=== PATIENT | female | born 1975 | race Caucasian/White ===

== ENCOUNTER 2022-11-20 18:54 | Emergency (ER) | payer BC ==
--- NOTE | 2022-11-20 19:03 | ERPHSYRPT ---
- History of Present Illness Time Seen by Provider: 11/20/22 19:03 Source: patient, family Exam Limitations: no limitations Physician History: 47-year-old white female patient who presents with left ankle pain after twisting it last evening while walking in crocs shoes. Patient was able to bear weight but has pain and the pain has persisted. Approximately 1400 today she took Tylenol 1000 mg. Patient states that she heard several pops when she injured it initially. Method of Injury: twisted Occurred: yesterday Quality: constant, aching Severity of Pain-Max: moderate Severity of Pain-Current: moderate Lower Extremities Pain: ankle: left Modifying Factors: Improves With: movement Associated Symptoms: other (Patient is able to bear weight but hurts to do so) Allergies/Adverse Reactions: Penicillins Allergy (Verified 11/20/22 19:06) procaine [From Novocain] Allergy (Verified 11/20/22 19:06) Home Medications: No Reportable Medications [No Reported Medications] 11/20/22 [History] Travel Risk - International Travel Have you traveled outside of the country in past 3 weeks: No - Coronavirus Screening Are you exhibiting any of the following symptoms?: No Close contact with a COVID-19 positive Pt in past 14-21 Days: No - Review of Systems Constitutional: No Symptoms Eyes: No Symptoms Ears, Nose, & Throat: No Symptoms Respiratory: No Symptoms Cardiac: No Symptoms Abdominal/Gastrointestinal: No Symptoms Genitourinary Symptoms: No Symptoms Musculoskeletal: Fall, Injury (Left ankle) Skin: No Symptoms Neurological: No Symptoms Psychological: No Symptoms Endocrine: No Symptoms Hematologic/Lymphatic: No Symptoms Immunological/Allergic: No Symptoms All Other Systems: Reviewed and Negative - Past Medical History Pertinent Past Medical History: No - Past Surgical History Past Surgical History: Yes - Nursing Vital Signs Nursing Vital Signs: Initial Vital Signs Temperature 97.2 F 11/20/22 19:08 Pulse Rate 78 11/20/22 19:08 Respiratory Rate 18 11/20/22 19:08 Blood Pressure 120/61 11/20/22 19:08 O2 Sat by Pulse Oximetry 97 11/20/22 19:08 Pain Scale Pain Intensity 8 - Physical Exam General Appearance: no apparent distress, alert, anxiety Eyes, Ears, Nose, Throat Exam: normal ENT inspection, moist mucous membranes Neck Exam: normal inspection, non-tender, supple, full range of motion Cardiovascular/Respiratory Exam: chest non-tender, no respiratory distress Gastrointestinal/Abdominal Exam: non-tender Back Exam: normal inspection, normal range of motion, No CVA tenderness, No vertebral tenderness Hips Exam: bilateral: non-tender, normal inspection, normal range of motion, no evidence of injury Legs Exam: bilateral leg: non-tender, normal inspection, normal range of motion, no evidence of injury Knees Exam: bilateral knee: non-tender, normal inspection, normal range of motion, no evidence of injury Ankle Exam: right ankle: non-tender, normal inspection, normal range of motion, left ankle: no evidence of injury, soft tissue tenderness Foot Exam: bilateral foot: non-tender, normal inspection, normal range of motion, no evidence of injury Neuro/Tendon Exam: normal sensation, normal motor functions, normal tendon functions, responds to pain, no evidence tendon injury Mental Status Exam: alert, oriented x 3, cooperative Skin Exam: normal color, warm, dry SpO2 Interpretation: normal O2 Delivery: Room Air - Course Nursing assessment & vital signs reviewed: Yes Ordered Tests: Active Orders 24 hr Category Date Time Status ANKLE (3 VIEWS) Stat Exams 11/20/22 19:07 Taken - Progress Progress Note: 11/20/22 20:00 No acute fracture or dislocation on the left ankle x-ray. I interpreted this film. 11/20/22 20:03 This patient's medical issues of low complexity. This is based on the patient's complaint, history of present illness, physical findings on physical examination. I ordered x-ray of the left ankle. I interpreted the results of this x-ray. I do not appreciate an acute fracture or dislocation. Patient is diagnosed with a sprain left ankle. We will provide her with 2 Percocet 5/325 pain medications for home. She is to take 1 tablet orally every 6-8 hours as needed for pain control. She is to follow-up with [facility] orthopedic clinic on 11/22/2022 if pain persist. Counseled pt/family regarding: diagnosis, need for follow-up, rad results Medical Desision Making - Discussion of managment Reviewed:: Test results Agreed on:: Treatment plan, need for follow-up - Diagnostic Testing Diagnostic test were ordered, analyzed, and reviewed by me: Yes Radiological Interpretation: Interpreted by me - Risk of complications Minimal Risk: Minimal risk of morbidity - Departure Departure Disposition: Home Clinical Impression: Left ankle sprain Condition: Stable Critical Care Time: No Referrals: KIM CADE [ACTIVE STAFF] - Follow up/PCP as directed Additional Instructions: Ice pack to area 3 times a day for the next 48 hours. Add ibuprofen to the Percocet pain medication that you were provided. After you complete the Percocet pain medication, use Tylenol and ibuprofen for pain control. Use Tylenol 650 mg alternating with ibuprofen 600 mg every 6 hours. Follow-up in [facility] orthopedic clinic on 11/22/2022 at 8 AM for evaluation if your symptoms persist. It is a walk-in clinic and you do not need to have an appointment.
[2022-11-20 19:15] VITALS: O2SAT 97
[2022-11-20] MEDS ORDERED: PERCOCET TABLET 5/325MG PO STA (20:05)
[2022-11-20] MEDS ORDERED: PERCOCET TABLET 5/325MG ONE (20:07)
[2022-11-20 20:09] VITALS: BP 116/66; PULSE 62
--- NOTE | 2022-11-20 20:39 | XRAY ---
Indication: Pain following fall. Comparison: None 3 view left ankle demonstrates tiny cortical fracture lateral malleolus with overlying soft tissue swelling. Incidental 8 mm distal femur shaft benign fibrous cortical defect. No other bony, articular, or soft tissue abnormalities. Comment: Fracture nonreportable by interpreting ER clinician. Telephone report was given to Dr. Ferrara at 2032 hrs. on November 20, 2022.
== END 2022-11-20 20:28 | disposition home or self-care (01) ==
LOC: ED 18:54
DX: S93.402A Sprain of unspecified ligament of left ankle, initial encounter (principal); X50.0XXA Overexertion from strenuous movement or load, initial encounter; Y93.01 Activity, walking, marching and hiking
CPT/HCPCS: 73610; 99283; A9270-GY